=== PATIENT | female | born 1990 | race Caucasian/White ===

== ENCOUNTER 2020-05-05 14:09 | Emergency (ER) | payer SELFPAY ==
[~2020-05-05] VITALS: Ht 182.9 cm; Wt 88.6 kg
[~2020-05-05 14:09] MED LIST: ALBUTEROL0.83 MG/ML IH; ALBUTEROL1.25 MG/3 IH; ATARAX50 MG PO; AZITHROMYCIN PO; CELEXA10 MG PO; CHANTIX 1MG1 MG PO; CITALOPRAM10 MG PO; ESKALITH C450 MG/TAB PO; ETONOGESTREL; FLEXERIL 1010 MG/TAB PO; LAMICTAL150 MG PO; LATUDA40 MG PO; LEXAPRO20 MG PO; MACROBID 1100 MG/CAP PO; NAPROSYN500 MG PO; NORCO 325 MG-51 TAB PO; NORCO 325 MG-7.1 TAB PO; PEPCID 20MG TAB20 MG PO; PERCOCET 325 MG1 TA2 PO; PERCOCET 325 MG1 TA3 PO; PREDNISONE20 MG PO; PRENATAL1 TA1 PO; PRENATAL1 TA2 PO; REGLAN 10MG10 MG/TAB PO; SEROQUEL 2525 MG/TAB PO; TYLENOL EXTRA500 M1 PO; VALIUM 5MG T5 MG/TAB PO; VENTOLIN0.09 MG IH; ZANTAC 150MG T150 MG PO; ZOFRAN 4MG T4 MG/TAB; ZOFRAN 4MG T4 MG/TAB PO; ZOFRAN INJ4 MG/2 ML PO; ZOFRAN ODT8 MG PO; ZOLOFT 25MG25 MG PO
[2020-05-05 14:19] VITALS: BP 105/66; TEMP 97.4
[2020-05-05] MEDS ORDERED: BACTRIM DS 8001 TAB PO (15:56)
[2020-05-05 16:18] VITALS: PULSE 98
== END 2020-05-05 16:22 | disposition home or self-care (01) ==
LOC: COL.ER 14:09
DX: L02.414 Cutaneous abscess of left upper limb (principal); F15.10 Other stimulant abuse, uncomplicated; F17.210 Nicotine dependence, cigarettes, uncomplicated

== ENCOUNTER 2021-04-17 11:57 | Emergency (ER) | payer SELFPAY ==
[~2021-04-17] VITALS: Ht 180.3 cm; Wt 59.1 kg
[~2021-04-17 11:57] MED LIST changes: +BACTRIM DS 8001 TAB PO
[2021-04-17 12:43] VITALS: TEMP 98.5
[2021-04-17 13:51] LABS: COLLECTION METHOD CLEAN CATCH
[2021-04-17 14:00] LABS: MUCOUS Present /lpf; PH 5 (5-8); SQUAMOUS EPITHELIAL 0-2 /hpf; URINE APPEARANCE Hazy; URINE BACTERIA Many /hpf; URINE BILIRUBIN Negative (NEGATIVE); URINE BLOOD Negative (NEGATIVE); URINE COLOR Amber; URINE GLUCOSE Negative (NEGATIVE); URINE KETONE Trace (NEGATIVE); URINE LEUKOCYTE ESTERASE Trace (NEGATIVE); URINE NITRATE Positive (NEGATIVE); URINE PROTEIN(semi-quant) 1+ (NEGATIVE); URINE RBC 0-2 /hpf; URINE UROBILINOGEN Negative (NEGATIVE)
[2021-04-17 14:23] LABS: TRICYCLIC ANTIDEPRESS URINE NEGATIVE
[2021-04-17 14:32] LABS: BASO % 0.2 % (0.0-2.0); EOS # 0.1 (0.0-0.7); EOS % 0.9 % (0-4.0); GRAN # 7.3 (1.4-6.5); GRAN % 66.3 % (42.2-75.2); HEMOGLOBIN 12.4 g/dl (12.5-16.0); LYMPH # 2.4 (1.2-3.4); LYMPH % 21.9 % (20.0-51.0); MEAN CELL VOLUME 93 fl (80.0-100.0); MEAN CORPUSCULAR HEMOGLOBIN 32 pg (27.0-31.0); MEAN CORPUSCULAR HGB CONC 35 g/dl (33.0-37.0); MEAN PLATELET VOLUME 10.6 fl (7.4-10.4); MONO # 1.1 (0.1-0.6); MONO % 10.2 % (1.7-9.3); PLATELET COUNT 310 K/mm3 (130-400); RED BLOOD COUNT 3.85 M/mm3 (4.10-5.30); REDCELL DISTRIBUTION WIDTH-CV 12.8 % (11.5-14.5)
[2021-04-17 14:35] LABS: HEMATOCRIT 35.9 % (37.0-47.0)
[2021-04-17 14:45] LABS: ALBUMIN 4.8 gm/dL (3.5-5.0); BILIRUBIN,TOTAL 0.4 mg/dL (0.0-1.0); CALCIUM 9.4 mg/dL (8.4-10.2); CREATININE, serum 0.94 (0.52-1.25); POTASSIUM 3.8 mmol/L (3.4-5.0); TOTAL PROTEIN 8.4 gm/dL (6.4-8.2)
[2021-04-17 14:58] LABS: TROPONIN-I 0.012 ng/mL (0.000-0.035)
[2021-04-17] MEDS ORDERED: CEPHALEXIN500 M1 PO (15:49)
[2021-04-17] MEDS ORDERED: MOTRIN 800800 MG/TAB PO (15:49)
[2021-04-17 16:34] VITALS: BP 94/78; PULSE 81
== END 2021-04-17 16:37 | disposition home or self-care (01) ==
LOC: COL.ER 11:57
PROVIDERS: Personal Emergency Response Attendant
DX: R07.89 Other chest pain (principal); R51.9 Headache, unspecified; N39.0 Urinary tract infection, site not specified
CPT/HCPCS: J0696; J1885

== ENCOUNTER 2022-03-21 17:00 | Emergency (ER) | payer OTHER ==
[~2022-03-21] VITALS: Ht 180.3 cm; Wt 104.5 kg
[~2022-03-21 17:00] MED LIST changes: +CEPHALEXIN500 M1 PO; +MOTRIN 800800 MG/TAB PO
[2022-03-21 17:29] VITALS: TEMP 98.1
[2022-03-21 19:27] LABS: COLLECTION METHOD CLEAN CATCH
[2022-03-21 19:33] LABS: PH 6 (5-8); SQUAMOUS EPITHELIAL 0-2 /hpf (0-10); URINE APPEARANCE Clear (CLEAR/HAZY); URINE BACTERIA Rare /hpf (NONE SEEN); URINE BLOOD Negative (NEGATIVE); URINE COLOR Straw (YELLOW); URINE GLUCOSE Negative (NEGATIVE); URINE KETONE Negative (NEGATIVE); URINE NITRATE Negative (NEGATIVE); URINE PROTEIN(semi-quant) Negative (NEGATIVE); URINE RBC 0-2 /hpf (0-2); URINE UROBILINOGEN Negative (NEGATIVE)
[2022-03-21 20:58] LABS: BASO % 0.2 % (0.0-2.0); EOS # 0.2 K/mm3 (0.0-0.7); EOS % 1.9 % (0.0-4.0); GRAN # 5.1 K/mm3 (1.4-6.5); HEMATOCRIT 41.8 % (37.0-47.0); HEMOGLOBIN 13.6 g/dl (12.5-16.0); LYMPH # 2.4 K/mm3 (1.2-3.4); LYMPH % 28.7 % (20.0-51.0); MEAN CELL VOLUME 101 fl (80.0-100.0); MEAN CORPUSCULAR HEMOGLOBIN 33 pg (27-31); MEAN CORPUSCULAR HGB CONC 33 g/dl (33.0-37.0); MONO # 0.6 K/mm3 (0.1-0.6); MONO % 7.4 % (1.7-9.3); PLATELET COUNT 186 K/mm3 (130-400); RED BLOOD COUNT 4.14 M/mm3 (4.10-5.30); REDCELL DISTRIBUTION WIDTH-CV 12.6 % (11.5-14.5)
[2022-03-21 21:08] LABS: BILIRUBIN,TOTAL 0.2 mg/dL (0.2-1.2); CALCIUM 9.6 mg/dL (8.4-10.2); CREATININE, serum 0.84 mg/dL (0.57-1.11); POTASSIUM 4.1 mmol/L (3.5-4.5); TOTAL PROTEIN 7.3 gm/dL (6.2-8.1)
[2022-03-21 21:53] VITALS: BP 101/62; PULSE 70
== END 2022-03-21 21:49 | disposition home or self-care (01) ==
LOC: COL.ER 17:00
PROVIDERS: Nurse Practitioner
DX: O26.891 Other specified pregnancy related conditions, first trimester (principal); R10.2 Pelvic and perineal pain; Z90.49 Acquired absence of other specified parts of digestive tract; Z28.310 Unvaccinated for COVID-19; Z3A.00 Weeks of gestation of pregnancy not specified

== ENCOUNTER 2022-11-05 09:46 | Inpatient (IN) | payer MEDICAID ==
[2022-11-05] VITALS (9 sets, daily range): BP systolic 102–134; BP diastolic 52–84; PULSE 55–73; TEMP 97.7–99.5
[~2022-11-05] VITALS: Ht 180.3 cm; Wt 109.1 kg
--- NOTE | 2022-11-05 09:55 | NUR ---
0955 PT ARRIVED TO UNIT WITH SUPPORT PERSON W/ COMPLAINTS OF BLEEDING AND CTX SINCE LAST NIGHT, 11/04/22. PT STATES CTX Q6 MINUTES. MERARIRN IN BATHROOM TO EXAMINE PAD WITH MODERATE AMOUNT OF BLOOD. PT STATES SHE CHANGED TOILET PAPER ON DRIVE FROM [place]. PT IN BED AFTER RESTROOM. SVE AT THIS TIME /1. IV STARTED IN RFA AFTER BLOWN ATTEMPT IN LFA. PT STATES SHE WAS AN IV DRUG USER SO HARD TO START IV. 100O PT SROM WITH THICK MECONIUM NOTED ON RUPTURE. PT REPORTS PRESSURE. NOTIFIED DR. HARRISON AT THIS TIME. DR. HARRISON LEAVING OFFICE. 1020 DR. HARRISON ARRIVED. BED BROKEN DOWN, ROOM SET FOR DELIVERY. PT BEARING DOWN AT THIS TIME. SVE AND PT COMPLETE WITH PUSH. 1025 OF VIABLE FEMALE . BABY PLACED ON MATERNAL ABDOMEN. CARE ASSUMED BY ZHANG DURAN RN. DR. HARRISON BEGINS FUNDAL MASSAGE. FIRM, DOWN 1, LOCHIA WNL. PT TOLERATED WELL. 1035 OF PLACENTA PER . PT TOLERATED WELL. PERINEUM INTACT.QBL 300MLS. 1045 ROOM PUT BACK TOGETHER AT THIS TIME. PT COMFORTABLE IN BED,
[2022-11-05 10:19] LABS: HEMOGLOBIN 12.9 g/dl (12.5-16.0); MEAN CELL VOLUME 91 fl (80.0-100.0); MEAN CORPUSCULAR HEMOGLOBIN 34 pg (27-31); MEAN CORPUSCULAR HGB CONC 37 g/dl (33.0-37.0); MEAN PLATELET VOLUME 10.1 fl (7.4-10.4); PLATELET COUNT 239 K/mm3 (130-400); RED BLOOD COUNT 3.82 M/mm3 (4.10-5.30); REDCELL DISTRIBUTION WIDTH-CV 12.7 % (11.5-14.5)
[2022-11-05 10:20] LABS: HEMATOCRIT 34.9 % (37.0-47.0)
[2022-11-05 10:39] LABS: LYMPHOCYTE 21 % (20.0-51.0); NEUTROPHILS 77 % (42.0-75.2); PLATELET ESTIMATE NORMAL (NORMAL)
[2022-11-05] MEDS ORDERED: ZOLOFT 100MG100 MG PO (10:43)
[2022-11-05] MEDS ORDERED: PREVIDENT5000PLUS DT (10:43)
[2022-11-05] MEDS ORDERED: FLEXERIL 1010 MG/TAB PO (10:43)
[2022-11-05] MEDS ORDERED: PEPCID 20MG TAB20 MG PO (10:44)
[2022-11-05] MEDS ORDERED: PROAIR HFA0.09 MG/AC IH (10:44)
[2022-11-05] MEDS ORDERED: ABIL400 (10:45)
[2022-11-05 13:52] LABS: TRICYCLIC ANTIDEPRESS URINE NEGATIVE
--- NOTE | 2022-11-05 14:19 | NUR ---
THIS DIAL SCREW ASSEMBLER ASSUMES CARE OF PATIENT FROM SEAN AARON RN.
[2022-11-06 04:15] VITALS: BP 91/51; PULSE 57; TEMP 98.2
[2022-11-06 08:15] VITALS: BP 95/54; PULSE 56; TEMP 97.8
[2022-11-06] MEDS ORDERED: IBU600 MG PO (08:59)
--- NOTE | 2022-11-06 09:07 | NUR ---
Initial visit; Parents thanked Hand Flesher for looking in on then and offering congratulations and God's blessings for the of their daughter. Parents state they would like to have their daughter "Blessed" by Hand Flesher later. Hand Flesher will return.
--- NOTE | 2022-11-06 13:10 | NUR ---
1230 THIS COMPUTER OPERATIONS SPECIALIST ASSUMES CARE OF PATIENT FROM WANG PAVON LPN.
--- NOTE | 2022-11-06 13:26 | NUR ---
SW attempted to meet MOB, however hearing test in progress. Patients RN informed to call this SW prior to DC to complete assessment.
--- NOTE | 2022-11-06 16:16 | NUR ---
OZZY met with jorje at bedside following consult. 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 She is and lives with her and two other children in [place]. She reports to having all basic care needs for baby. She is established with WIC and [facility] for assistance. She works nights and her spouse works days. Together they have been making this work to avoid child support officer costs. Other supports in her life are her mother, the faith they belong to, a womens group she attends as well as a tissue recovery technician. She is seeking MH treatment through [facility] in and sees a therapist in person and just got on an antidepressant due to past history of .
== END 2022-11-06 17:58 | disposition home or self-care (01) | DRG 807 ==
LOC: LDRO 09:46 → LDR 10:11 → OB 10:11
PROVIDERS: ADMIT Obstetrics & Gynecology
PROC: 10E0XZZ Delivery of Products of Conception, External Approach (ICD-10-PCS; principal; 2022-11-05)
DX: O99.892 Other specified diseases and conditions complicating childbirth (principal); Z37.0 Single live birth; N18.9 Chronic kidney disease, unspecified; O77.0 Labor and delivery complicated by meconium in amniotic fluid; O99.343 Other mental disorders complicating pregnancy, third trimester; F31.9 Bipolar disorder, unspecified; O99.333 Smoking (tobacco) complicating pregnancy, third trimester; Z3A.38 38 weeks gestation of pregnancy
CPT/HCPCS: J2590; J7120